=== PATIENT | female | born 1995 | race Caucasian/White ===

== ENCOUNTER → 2020-04-02 17:50 | Outpatient (CLI) | payer OTHER, SELFPAY ==
--- NOTE | 2020-04-02 17:53 | DI.MRI.S_ITS ---
PROCEDURE: MR TMJ WO CON INDICATIONS: LEFT PAIN AND TENDERNESS OF TMJ TECHNIQUE: Axial T1 spin echo, coronal and sagittal PD fast spin echo through the temporomandibular joints, in both the closed- and open-mouth positions. COMPARISON: None. FINDINGS: Image quality: Excellent. Right: Joint is normally aligned on closed and open-mouth positioning. Articular disk demonstrates normal location and morphology. No bony erosions or osteophytes. Left: Joint is normally aligned on closed and open-mouth positioning. Articular disk is anteriorly displaced in the closed-mouth position. There is reduction of the displaced articular disc in the open-mouth position. Small left joint effusion noted.. No bony erosions or osteophytes. IMPRESSION: 1. Left TMJ articular disc anterior displacement with reduction in the open-mouth position. 2. Small left TMJ effusion. Dictated by: Roxana Garnica MD, PhD on 04/03/2020 at 13:19 Approved by: Roxana Garnica MD, PhD on 04/03/2020 at 13:23
== END ==
PROVIDERS: Referring Provider Family Medicine; Visit Provider Family Medicine
DX: M26.622 Arthralgia of left temporomandibular joint (principal); M26.632 Articular disc disorder of left temporomandibular joint
CPT/HCPCS: 70336